=== PATIENT | female | born 1965 | race Caucasian/White ===

== ENCOUNTER 2017-06-20 08:15 | Day surgery (SDC) | payer BC ==
--- NOTE | 2017-06-02 10:20 | HP ---
AMENDED REPORT NOW INCLUDES COSIGNER DESIGNATION - ESIGNED BEFORE ADJUSTMENT CC: Dr. Virgie Cabrera * HISTORY AND PHYSICAL: DATE OF ADMISSION: 06/20/17 ATTENDING SURGEON: Amor Harden MD * (DICTATED BY FIFI HERNANDEZ) CHIEF COMPLAINT: Left groin hernia. HISTORY OF PRESENT ILLNESS: This is a 52-year-old generally healthy female who for the past 2 years has noted an intermittent bulge in the left groin generally when she is upright and active, though it self-reduces when she is recumbent or supine. It has increased gradually in size and at the present time manifests pretty much on a daily basis, but with minimal discomfort and nothing to suggest incarceration or strangulation. She does manually reduce it occasionally during the day. An ultrasound had been done previously in the supine position, but did not demonstrate the hernia. She was seen by Dr. Harden on 03/11/17, at which time exam in the standing position confirmed the presence of a bulge in the medial aspect of the left groin extending toward the mons pubis. Impression was that of a left groin hernia, possibly femoral and recommendation was made for repair. At the time of today's preop history and physical, the patient was enquiring about laparoscopic approach. This was discussed with Dr. Harden who will meet with the patient again before surgery to discuss that option. The patient understands the indications for repair, the risks, benefits, and alternatives and would like to proceed with repair (approach to be determined) of left groin (femoral) hernia with mesh. PAST MEDICAL HISTORY: 1. Anxiety. 2. Ocular migraines. 3. Arthritis. 4. Occasional dermatitis. PAST SURGICAL HISTORY: 1. 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 2. Tympanostomy tubes. 3. Repair of right great toe. No surgical or anesthesia complications. CURRENT MEDICATIONS: 1. Cymbalta 20 mg once daily. 2. Magnesium 300 mg once daily. 3. Curcumin 500 mg once daily. 4. Multivitamin once daily. 5. Fish oil, dose not specified, once daily. 6. Clobetasol 0.05% topically p.r.n. DRUG ALLERGIES: None. FAMILY HISTORY: Negative for hernias and negative for anesthesia problems, bleeding, or clotting disorders. SOCIAL HISTORY: The patient is . She has children, but not living at home. 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 She denies use of tobacco. She drinks up to 6 drinks per week. She denies other recreational drug use. REVIEW OF SYSTEMS: General: No recent constitutional symptoms or acute illnesses. Weight has been stable. Cardiovascular: No history of chest pain, palpitations, or heart murmur. Respiratory: No history of asthma, chronic cough, or shortness of breath. GI: No problems reported. She has never had a screening colonoscopy, but understands that that may be recommended. : No problems reported. 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 Musculoskeletal: Occasional joint pain for which she sees a chiropractor. Neuro/Psych: No additions to above. PHYSICAL EXAMINATION GENERAL: Well-nourished, well developed female, in no acute distress. VITAL SIGNS: Height 65 inches, weight 138 pounds, temperature 97.3, blood pressure 102/78, pulse 72, respirations 16. HEENT: Pupils are equal, round, and reactive. EOMs intact. No conjunctival pallor. Oropharynx: Teeth in good repair. No intraoral lesions. SKIN: Warm and dry. No suspicious rashes or lesions. NECK: No lymphadenopathy, thyromegaly, or masses. LUNGS: Clear to auscultation. No rales or wheezes. HEART: Regular rate and rhythm. No murmur noted. BREASTS: Not examined. ABDOMEN: Flat, nondistended. Soft, nontender to palpation. No palpable masses or organomegaly with the exception of a medial left groin mass extending toward the pubis in the standing position, which is reducible and nontender. GENITALIA: Not done. RECTAL: Not done. BACK: No spinous process or CVA tenderness. EXTREMITIES: No edema. NEUROLOGICAL: Grossly intact. IMPRESSION: Left groin hernia (possible femoral). PLAN: Repair, left groin (femoral) hernia (approach open versus laparoscopic to be determined). FIFI HERNANDEZ [id number]/[facility] #: [id number] TONY
[~2017-06-20 08:15] MED LIST: Buffered Lidocaine 0.9% SYRIN* 5 ML/SYR SYRINGE INTRADERM ONE; Dexamethasone IV* 4 MG/ML 1 ML (4 MG) IV SLOW PU ONE; Famotidine IV* 10 MG/ML 2 ML (20 mg) IV ONE
[2017-06-20] MEDS ORDERED: Famotidine IV* 10 MG/ML 2 ML (20 mg) ONE (08:41)
[2017-06-20] MEDS ORDERED: Dexamethasone IV* 4 MG/ML 1 ML (4 MG) ONE (08:41)
[2017-06-20] MEDS ORDERED: ceFAZolin 2 GM PREMIX (*) 2 GM/50 ML BAG IVPB ONE (08:42)
[2017-06-20] MEDS ORDERED: Buffered Lidocaine 0.9% SYRIN* 5 ML/SYR SYRINGE ONE (08:42)
[2017-06-20] MEDS ORDERED: Midazolam* 1 MG/ML 5 ML VIAL (5 MG) ONE (09:14)
[2017-06-20] MEDS ORDERED: fentaNYL* 50 MCG/ML 5 ML VIAL (250 MCG VIAL) ONE (09:14)
[2017-06-20] MEDS ORDERED: Ketorolac INJ* 30 MG/ML 1 ML VIAL ONE (09:14)
[2017-06-20] MEDS ORDERED: Ondansetron INJ* 2 MG/ML VIAL ONE (09:14)
[2017-06-20] MEDS ORDERED: Propofol* 10 MG/ML 20 ML BTL IV PUSH ONE (09:14)
[2017-06-20] MEDS ORDERED: Lidocaine 2% PF * 5 ML VIAL ONE (09:17)
[2017-06-20] MEDS ORDERED: Bupivacaine 0.25% SDV* 30 ML ONE (09:40)
[2017-06-20] MEDS ORDERED: Atracurium* 10 MG/ML 10 ML VIAL ONE (09:50)
[2017-06-20] MEDS ORDERED: fentaNYL* 50 MCG/ML 2 ML VIAL (100 MCG VIAL) IV PRN (10:32)
[2017-06-20] MEDS ORDERED: Ondansetron INJ* 2 MG/ML VIAL IV PRN (10:32)
[2017-06-20] MEDS ORDERED: oxyCODONE/Acetamin 5/325 MG* TAB PO PRN (10:32)
[2017-06-20] MEDS ORDERED: DiMENhydriNATE IV* 50 MG/ML VIAL IV PUSH PRN (10:32)
[2017-06-20] MEDS ORDERED: Naloxone* 0.4 MG/ML 1 ML VIAL IV PRN (10:32)
[2017-06-20] MEDS ORDERED: Scopolamine 1.5 mg* PATCH TRANSDERM PRN (10:32)
[2017-06-20 13:32] VITALS: BP 114/74
[2017-06-20] MEDS ORDERED: Scopolamine 1.5 mg* PATCH ONE (13:47)
--- NOTE | 2017-06-20 23:10 | OP ---
CC: Dr. Vigrie Pearson * DATE OF OPERATION: 06/20/17 - SDS DATE OF : 69 SURGEON: Amor Harden MD DRIER TAKE OFF TENDER: Tammy Barry NP ANESTHESIOLOGIST: Jovany Gabriel MD ANESTHESIA: General with local. PRE-OP DIAGNOSIS: Left inguinal hernia. POST-OP DIAGNOSIS: Left direct inguinal hernia. OPERATIVE PROCEDURE: Laparoscopic totally extraperitoneal repair with mesh of a left direct inguinal hernia. INDICATIONS: Itzel Ramos is a 52-year-old woman who has had a bulge in the left groin felt to be an inguinal hernia for several years. This has caused her some discomfort especially when exercising. It is reducible with some discomfort. She is now to undergo an elective repair. ESTIMATED BLOOD LOSS: Minimal. IV FLUID: 1 L of crystalloid. SPECIMENS: None. COMPLICATIONS: None. DRAINS: None. WOUND CLASSIFICATION: 1. FINDINGS: The patient had a left direct inguinal hernia. DESCRIPTION OF PROCEDURE: Written and informed consent was obtained, the left groin was marked with indelible ink and preoperative antibiotics were administered. The patient was taken to the operating room and placed in the supine position. Sequential compression devices and warming blanket were applied. General anesthesia was administered. A Torres catheter was inserted. The abdomen and both left and right groins were prepped and draped in usual sterile fashion. Time-out verification was completed. Initially, a small transverse incision was made at the midline just below the umbilicus and the anterior rectus sheath to the left of midline, was divided transversely and the muscle was retracted laterally and exposed the posterior sheath to develop the extraperitoneal space. The Spacemaker balloon was then inserted and gently passed down the midline carefully until it opposed the pubic tubercle. This was then inflated with about 8 to 10 squeezes of the balloon under direct vision of the 10-mm camera. Once I felt adequate space had been developed mainly in the left, the balloon was removed and a 12-mm Philippe blunt port catheter was inserted in the extraperitoneal space, was insufflated to 12 mmHg and the patient was placed in the Trendelenburg position. Under direct vision, two 5-mm ports were placed at the midline each several fingerbreadths below the initial blunt port site in a row. Dissection was commenced at the midline, identified the pubic tubercle as well as Antony's ligament on the left. I did dissect somewhat to the right of midline in preparation for the mesh placement. It was also evident that some of the epigastric vessels had been dissected off the anterior abdominal wall. These were identified and carefully from the adventitial tissue and protected from injury throughout and kept and retracted anteriorly on to the anterior abdominal wall. The space along the left lateral anterior wall, which I then identified and developed out to the iliac crest. The iliopubic tract was identified. I then identified the peritoneal reflection laterally as it extended medially. This was easily identifiable. There did not appear to be an indirect inguinal hernia. Once I had some of the adventitial tissue more medial, it was evident that there was a moderate-sized direct inguinal hernia with the hernia sac and also some fat in the adventitial tissue. This was reduced carefully with care to prevent injury to the peritoneum. I identified the epigastric vessels and the internal ring on the left as well as the round ligament in its expected position and this was not injured throughout. Once I had adequately reduced the direct space hernia and the peritoneum was reflected posteriorly and cranially, a 10 cm x 15 cm, self-gripping laparoscopic mesh was then rolled and inserted into the space. This was then placed into position to cover the pubic tubercle and the Antony's ligament and extended up on to the anterior abdominal wall to cover the direct, indirect spaces, and the femoral space and extended almost lateral to the iliac crest and care was taken to prevent the wrinkling or folding of the mesh. I also assured myself that the peritoneum posteriorly had been reflected back, so that there was no chance that it could migrate underneath the mesh. Hemostasis was then assured. I allowed the space to desufflate under direct vision holding the mesh both anterior and posteriorly to prevent "clam shelling" of the mesh as the peritoneum came in contact with the mesh. All ports were then removed. The umbilical anterior fascia was closed with interrupted 0 Polysorb suture. The skin at all 3 incisions was approximated with subcuticular 4-0 Polysorb suture. Steri-Strips were applied. The patient tolerated the procedure well and was taken to the recovery room in stable condition. [id number]/[facility] #: [id number] [facility]
== END 2017-06-20 14:43 | disposition home or self-care (01) ==
LOC: OR 08:15
PROVIDERS: ATTEND Surgery
DX: K40.90 Unilateral inguinal hernia, without obstruction or gangrene, not specified as recurrent (principal); F41.9 Anxiety disorder, unspecified; M19.90 Unspecified osteoarthritis, unspecified site; G43.B0 Ophthalmoplegic migraine, not intractable
CPT/HCPCS: 81025; A9270-GY; J0690; J1100; J1885; J2250; J2405; J2704; J3010